=== PATIENT | female | born 1940 | race Caucasian/White ===

== ENCOUNTER 2019-08-26 09:39 | Emergency (ER) | payer MEDICARE, BC ==
[~2019-08-26] VITALS: Ht 160 cm; Wt 46.3 kg
[~2019-08-26 09:39] MED LIST: AZITHROMYCIN 2250 MG PO; CO Q-10100 MG PO; FISH OIL 1,001000 M2 PO; LEVOTHYROXINE 0.1 MG PO; LISINOPRIL20 MG; LISINOPRIL20 MG PO; MACROBID 100 M100 M2 PO; NEURONTIN PO; NORVASC5 MG PO; TENEX; TIZANIDINE HCL4 MG PO; VANTIN PO; VITAMIN E400 UNIT PO; ZANTAC 150MG T150 MG PO
[2019-08-26 10:23] LABS: ABSOLUTE LYMPHOCYTES 0.9 thou/uL (0.8-5.3); ABSOLUTE MONOCYTES 0.5 thou/uL (0.0-1.2); ABSOLUTE NEUTROPHILS 4.2 thou/uL (1.6-8.1); BASOPHILS 0.7 %; EOSINOPHILS 0.8 %; HEMATOCRIT 37.5 % (37.0-47.0); LYMPHOCYTES 15.8 %; MCHC 34.6 g/dL (28.0-37.0); MCV 92.7 fL (80.0-100.0); MONOCYTES 8.4 %; MPV 7.8 fl. (7.2-11.1); NUCLEATED RBCS 0 /100WBC; PLATELET COUNT* 201 thou/uL (150-400); POLYS 74.3 %; RBC 4.05 mil/uL (4.20-5.00); RDW-CV 13.6 % (10.5-14.5); WBC 5.6 thou/uL (4.0-11.0)
[2019-08-26 10:34] LABS: CALCIUM 8.1 mg/dL (8.5-10.1); CREATININE 0.8 mg/dL (0.6-1.3); POTASSIUM 3.3 mmol/L (3.5-5.1)
[2019-08-26 10:39] LABS: ALBUMIN 3.7 g/dL (3.4-5.0); TOTAL BILIRUBIN 0.5 mg/dL (<0.1-1.0)
[2019-08-26 11:47] LABS: URINE BILIRUBIN NEGATIVE (Negative); URINE BLOOD TRACE (Negative); URINE CLARITY CLEAR; URINE COLOR YELLOW; URINE GLUCOSE-RANDOM NEGATIVE (Negative); URINE KETONES TRACE (Negative); URINE LEUKOCYTES-REFLEX NEGATIVE (Negative); URINE NITRITE-REFLEX NEGATIVE (Negative); URINE PROTEIN NEGATIVE (Negative); URINE SPECIFIC GRAVITY 1.015 (1.005-1.030); URINE UROBILINOGEN 0.2 E.U./dl (0.2-1.0)
[2019-08-26] MEDS ORDERED: ONDANSETRON ODT4 MG PO (11:52)
[2019-08-26 13:05] VITALS: BP 156/75
--- NOTE | 2019-08-27 10:55 | EKG ---
[place] [address] ELECTROCARDIOGRAM REPORT Name: NOLBERTO MACARIO Room: [facility]#: [id number] Admission: 08/26/19 Attend Phys: Discharge: 08/26/19 Date of : 36 Report #: [id number] THIS REPORT FOR: //name// [facility] ED Test Date: 2019-08-26 Test Time: 10:36:01 Pat Name: NOLBERTO MACARIO Department: Room: Gender: F Line Service Technician: YOHANA : 1940 Requested By: Raffi Bowman Order Number: [id number] MD: Gerardo Black Measurements Intervals [place] Rate: 65 P: 70 TN: 193 QRS: -83 QRSD: 148 T: 93 QT: 496 QTc: 516 Interpretive Statements Atrial-sensed ventricular-paced rhythm No further analysis attempted due to paced rhythm Baseline wander in lead(s) V2 Compared to ECG 06/30/2017 22:26:07 No significant changes Electronically Signed On 08-27-2019 10:54:58 PRIVATE TUTOR by Gerardo Black [email or web address] <ELECTRONICALLY SIGNED> By: Gerardo Black MD, FACC 08/27/19 1054 1036 1036 Gerardo Black MD, FAC /EPI
== END 2019-08-26 13:05 | disposition home or self-care (01) ==
LOC: M.ERS 09:39
PROVIDERS: Physician Assistant
DX: R11.2 Nausea with vomiting, unspecified (principal); I10 Essential (primary) hypertension; E03.9 Hypothyroidism, unspecified; G62.9 Polyneuropathy, unspecified; Z88.2 Allergy status to sulfonamides; Z88.8 Allergy status to other drugs, medicaments and biological substances

== ENCOUNTER 2019-11-25 15:18 | Emergency (ER) | payer MEDICARE, BC ==
[~2019-11-25] VITALS: Ht 162.6 cm; Wt 46.7 kg
[~2019-11-25 15:18] MED LIST changes: +ONDANSETRON ODT4 MG PO
[2019-11-25] MEDS ORDERED: MELOXICAM15 MG PO (15:35)
[2019-11-25] MEDS ORDERED: CALICUM 500+D1 EACH PO (15:35)
[2019-11-25] MEDS ORDERED: MULTIVITAMINS1 EAC7 PO (15:36)
[2019-11-25] MEDS ORDERED: COQ-1030 MG PO (15:36)
[2019-11-25] MEDS ORDERED: FISH OIL 1,0001 EAC9 PO (15:36)
[2019-11-25] MEDS ORDERED: VITAMIN E1000 UNIT PO (15:36)
[2019-11-25] MEDS ORDERED: GRALISE600 MG PO (15:37)
[2019-11-25] MEDS ORDERED: LISINOPRIL2.5 MG PO (15:37)
[2019-11-25] MEDS ORDERED: TIZANIDINE HCL4 M1 PO (15:37)
[2019-11-25] MEDS ORDERED: HEARTBURN RELIE75 MG PO (15:38)
[2019-11-25] MEDS ORDERED: SYNTHROID100 MC1 PO (15:38)
[2019-11-25 15:56] LABS: ABSOLUTE BASOPHILS 0.1 thou/uL (0.0-0.2); ABSOLUTE EOSINOPHILS 0.2 thou/uL (0.0-0.7); ABSOLUTE MONOCYTES 0.5 thou/uL (0.0-1.2); ABSOLUTE NEUTROPHILS 4.6 thou/uL (1.6-8.1); BASOPHILS 0.9 %; EOSINOPHILS 2.7 %; HEMATOCRIT 40.2 % (37.0-47.0); HEMOGLOBIN 13.7 gm/dL (12.0-15.0); LYMPHOCYTES 26.7 %; MCV 93.9 fL (80.0-100.0); MONOCYTES 7.1 %; MPV 7.8 fl. (7.2-11.1); NUCLEATED RBCS 0 /100WBC; PLATELET COUNT* 215 thou/uL (150-400); POLYS 62.6 %; RBC 4.28 mil/uL (4.20-5.00); RDW-CV 13.4 % (10.5-14.5); WBC 7.3 thou/uL (4.0-11.0)
[2019-11-25 16:05] LABS: CALCIUM 9.1 mg/dL (8.5-10.1); CREATININE 0.8 mg/dL (0.6-1.3); POTASSIUM 3.8 mmol/L (3.5-5.1)
[2019-11-25 16:06] LABS: APTT 30.3 Seconds (25.0-31.3)
[2019-11-25 16:15] LABS: URINE BILIRUBIN NEGATIVE (Negative); URINE BLOOD TRACE (Negative); URINE CLARITY CLEAR; URINE COLOR YELLOW; URINE GLUCOSE-RANDOM NEGATIVE (Negative); URINE KETONES NEGATIVE (Negative); URINE LEUKOCYTES-REFLEX NEGATIVE (Negative); URINE NITRITE-REFLEX NEGATIVE (Negative); URINE PROTEIN NEGATIVE (Negative); URINE SPECIFIC GRAVITY 1.015 (1.005-1.030); URINE UROBILINOGEN 0.2 E.U./dl (0.2-1.0)
[2019-11-25 16:15] LABS: ALBUMIN 4.1 g/dL (3.4-5.0); TOTAL BILIRUBIN 0.4 mg/dL (<0.1-1.0); TOTAL PROTEIN 7.3 g/dL (6.4-8.2)
[2019-11-25] MEDS ORDERED: ZESTORETIC 20-1 EACH PO (16:22)
[2019-11-25 16:35] VITALS: BP 148/72
--- NOTE | 2019-11-26 10:59 | EKG ---
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: : 1940 Requested By: Shayla Barrera Order Number: [id number] MD: Kaz Olsen Measurements Intervals [place] Rate: 68 P: 65 MN: 182 QRS: -84 QRSD: 143 T: 90 QT: 462 QTc: 492 Interpretive Statements Atrial-sensed ventricular-paced rhythm No further analysis attempted due to paced rhythm Compared to ECG 08/26/2019 10:36:01 No significant changes Electronically Signed On 11-26-2019 10:58:55 ASSEMBLY LOADER by Kaz Olsen [email or web address] <ELECTRONICALLY SIGNED> By: Kaz Olsen MD, FAC 11/26/19 1058 1534 1534 Kaz Olsen MD, [facility] /EPI
== END 2019-11-25 16:36 | disposition home or self-care (01) ==
LOC: M.ERS 15:18
PROVIDERS: Family Medicine; Nurse Practitioner Family
DX: I10 Essential (primary) hypertension (principal); E03.9 Hypothyroidism, unspecified; G62.9 Polyneuropathy, unspecified; Z95.0 Presence of cardiac pacemaker; Z88.2 Allergy status to sulfonamides; Z88.8 Allergy status to other drugs, medicaments and biological substances